=== PATIENT | male | born 1990 | race Hispanic/Latino ===

== ENCOUNTER 2016-06-05 19:02 | Emergency (ER) | payer BC ==
[~2016-06-05] VITALS: Ht 172.7 cm; Wt 79.5 kg
[~2016-06-05 19:02] MED LIST: IBUPROFEN400 MG OR
[2016-06-05] MEDS ORDERED: NAPROSYN500 MG PO (21:39)
[2016-06-05 21:48] VITALS: BP 107/62
== END 2016-06-05 21:48 | disposition home or self-care (01) | DRG 563 ==
LOC: ED 19:02
DX: S83.92XA Sprain of unspecified site of left knee, initial encounter (principal); W18.30XA Fall on same level, unspecified, initial encounter; Y93.66 Activity, soccer